=== PATIENT | female | born 1945 | race Caucasian/White ===

== ENCOUNTER 2021-04-11 13:17 | Inpatient (IN) ==
[2021-04-11 14:04] LABS: ABG Base Excess 6.7 MMOL/L (-2.5-2.5); ABG HCO3 30.5 MMOL/L (20-26); ABG Oxygen Saturation 99.5 % (95-100); ABG PH 7.277 (7.35-7.45); ABG TCO2 32.8 MMOL/L (23-27)
[2021-04-11 14:06] LABS: ABG PCO2 82.1 MM HG (35-48)
[2021-04-11 14:24] LABS: Albumin 3.2 G/DL (3.4-5.0); Bilirubin,Total 0.7 MG/DL (0.20-1.00); Calcium 8.8 MG/DL (8.5-10.1); Total Protein 6.9 G/DL (6.4-8.2)
[2021-04-11 14:30] LABS: Basophils # 0.1 10*3/uL (0.0-0.2); Basophils % 0.7 % (0.0-0.8); Eosinophils # 0.1 10*3/uL (0.0-0.87); Eosinophils % 0.7 % (0.00-10.9); Hematocrit 51.7 VOL% (35.7-47.0); Hemoglobin 15.3 GM/DL (12.0-16.0); Immature Granulocytes % 0.4 %; Immature Granulocytes Absolute 0.04 #; Lymphocytes # 1.7 10*3/uL (1.4-4.0); Lymphocytes % 16.3 % (21.3-54.2); Mean Corpuscular HGB Conc 29.6 GM/DL (32-36); Mean Corpuscular Volume 96.8 FL (87-102); Mean Platelet Volume 10.7 FL (9.6-12.0); Monocytes % 14.3 % (1.7-12.7); NRBC # 0.02 10*3/uL; Neutrophils % 67.6 % (38.7-73.9); Platelet Count 235 T/CUMM (130-400); Red Blood Count 5.34 MC/CUMM (3.8-5.5); Red Cell Distribution Width 14.2 % (9.3-17.3); White Blood Count 10.4 T/CUMM (4-12)
[2021-04-11 15:13] LABS: Eosinophils 2 % (0-10); Lymphocytes 17 % (20-55); Nucleated Red Blood Cells 2 (0-5); Polychromasia Few; Segmented Neutrophils 73 % (50-85); Target Cells Few; Total Cells Counted 100
[2021-04-11 15:14] LABS: Spherocytes Slight
[2021-04-11 15:15] LABS: Macrocytosis Slight; Platelet Estimate Normal
[2021-04-11 15:47] LABS: Bacteria,Urine Occasional /HPF (Few); Bilirubin,Urine Negative (Negative); Blood, Urine Negative (Negative); Glucose,Urine (UA) Negative (Negative); Hyaline Casts,Urine 3 /LPF (0-3); Ketones,Urine Negative (Negative); Mucus,Urine Occasional /LPF (Occasional); Nitrite,Urine Negative (Negative); Protein,Urine 30 MG/DL; RBC,Urine 3 /HPF (0-4); Squamous Epithelial Cell,Urine Occasional /HPF (0-10); Urine Appearance Slightly Hazy (Clear); Urine Color Yellow (Yellow); Urine Specific Gravity 1.023 (1.001-1.035); Urine Urobilinogen < 2.0 EU/DL (<2.0)
[2021-04-11] MEDS ORDERED: DEXTROSE 10% 25 GM/250 ML BAG IV PRN (15:56)
[2021-04-11] MEDS ORDERED: ONDANSETRON 4 MG/2 ML VIAL IV PRN (15:56)
[2021-04-11] MEDS ORDERED: ACETAMINOPHEN 325 MG TABLET PO PRN (15:56)
[2021-04-11] MEDS ORDERED: GLUCAGON 1 MG VIAL IM PRN (15:56)
[2021-04-11] MEDS ORDERED: FUROSEMIDE 40 MG/4 ML VIAL IV STA (16:15)
[2021-04-11] MEDS ORDERED: hydrALAZINE 20 MG/1 ML VIAL IV PRN (16:40)
[2021-04-11] MEDS: ENOXAPARIN 40 MG/0.4 ML SYRINGE SUBCUT SCH (17:05)
[2021-04-11] MEDS: cefTRIAXone 1,000 MG in SODIUM CHLORIDE 0.9% 100 ML IV SCH (17:09)
[2021-04-11 17:10] LABS: Risk Ratio 3.44; Thyroid Stimulating Hormone 2.06 uIU/ml (0.358-3.74); VLDL Cholesterol 20.6 MG/DL
[2021-04-11] MEDS: FUROSEMIDE 40 MG/4 ML VIAL IV SCH ×2 (17:13→19:01)
[2021-04-11] MEDS: AZITHROMYCIN INJ 500 MG in SODIUM CHLORIDE 0.9% 250 ML IV SCH (19:18)
[2021-04-12 04:26] LABS: ABG Base Excess 7.4 MMOL/L (-2.5-2.5); ABG HCO3 31.1 MMOL/L (20-26); ABG Oxygen Saturation 93.6 % (95-100); ABG PH 7.218 (7.35-7.45); ABG PO2 77.6 MM HG (80-95); ABG TCO2 36.3 MMOL/L (23-27); Allen Test Positive; Pt O2 Delivery Device BIPAP
[2021-04-12] MEDS ORDERED: SODIUM BICARBONATE 50 MEQ/50 ML VIAL IV STA (04:59)
[2021-04-12] MEDS ORDERED: SODIUM BICARBONATE 50 MEQ/50 ML VIAL IV ONE (05:01)
[2021-04-12 05:38] LABS: Calcium 8.5 MG/DL (8.5-10.1); Osmolality,Calculated 278.5 MOS/KG (273-304); Potassium 4.4 MMOL/L (3.5-5.1)
[2021-04-12 06:03] LABS: Basophils # 0.1 10*3/uL (0.0-0.2); Basophils % 0.6 % (0.0-0.8); Eosinophils # 0.1 10*3/uL (0.0-0.87); Eosinophils % 1.7 % (0.00-10.9); Hematocrit 49.6 VOL% (35.7-47.0); Immature Granulocytes % 0.4 %; Immature Granulocytes Absolute 0.03 #; Lymphocytes # 1.2 10*3/uL (1.4-4.0); Lymphocytes % 14.9 % (21.3-54.2); Mean Corpuscular HGB Conc 29.2 GM/DL (32-36); Mean Corpuscular Volume 98.2 FL (87-102); Mean Platelet Volume 10.7 FL (9.6-12.0); Monocytes % 13.8 % (1.7-12.7); Neutrophils % 68.6 % (38.7-73.9); Platelet Count 216 T/CUMM (130-400); Red Blood Count 5.05 MC/CUMM (3.8-5.5); Red Cell Distribution Width 14.3 % (9.3-17.3); White Blood Count 8.2 T/CUMM (4-12)
[2021-04-12 06:06] LABS: Hemoglobin 14.5 GM/DL (12.0-16.0)
[2021-04-12 06:23] LABS: ABG Base Excess 9.3 MMOL/L (-2.5-2.5); ABG HCO3 32.9 MMOL/L (20-26); ABG Oxygen Saturation 94.4 % (95-100); ABG PH 7.224 (7.35-7.45); ABG PO2 80.8 MM HG (80-95); ABG TCO2 38.2 MMOL/L (23-27)
[2021-04-12] MEDS: FUROSEMIDE 40 MG/4 ML VIAL IV SCH ×2 (08:51→16:57)
[2021-04-12] MEDS: LOSARTAN 50 MG TABLET PO SCH (08:51)
[2021-04-12 14:59] LABS: ABG Base Excess 10.3 MMOL/L (-2.5-2.5); ABG HCO3 34.1 MMOL/L (20-26); ABG Oxygen Saturation 98.5 % (95-100); ABG PH 7.262 (7.35-7.45); ABG TCO2 37.8 MMOL/L (23-27); Allen Test Positive; Pt O2 Delivery Device BIPAP
[2021-04-12 15:01] LABS: ABG PCO2 96.1 MM HG (35-48)
[2021-04-12] MEDS ORDERED: INFLUENZA VIRUS VACCINE 0.5 ML SYRINGE IM ONE (15:34)
[2021-04-12] MEDS: ENOXAPARIN 40 MG/0.4 ML SYRINGE SUBCUT SCH (16:57)
[2021-04-12] MEDS: metOLazone 5 MG TABLET PO SCH (17:51)
[2021-04-12] MEDS: AZITHROMYCIN INJ 500 MG in SODIUM CHLORIDE 0.9% 250 ML IV SCH (18:26)
[2021-04-12] MEDS: cefTRIAXone 1,000 MG in SODIUM CHLORIDE 0.9% 100 ML IV SCH (20:14)
[2021-04-13 04:13] LABS: Calcium 8.5 MG/DL (8.5-10.1)
[2021-04-13 04:32] LABS: Basophils % 0.5 % (0.0-0.8); Eosinophils # 0.3 10*3/uL (0.0-0.87); Hemoglobin 13.8 GM/DL (12.0-16.0); Immature Granulocytes % 0.4 %; Immature Granulocytes Absolute 0.03 #; Lymphocytes # 1.5 10*3/uL (1.4-4.0); Lymphocytes % 17.8 % (21.3-54.2); Mean Corpuscular HGB Conc 29.7 GM/DL (32-36); Mean Corpuscular Volume 96.5 FL (87-102); Mean Platelet Volume 10.7 FL (9.6-12.0); Neutrophils % 61.3 % (38.7-73.9); Platelet Count 207 T/CUMM (130-400); Red Blood Count 4.81 MC/CUMM (3.8-5.5); White Blood Count 8.2 T/CUMM (4-12)
[2021-04-13 04:34] LABS: Hematocrit 46.4 VOL% (35.7-47.0)
[2021-04-13 04:42] LABS: Atypical Lymphocytes Few; Eosinophils 5 % (0-10); Hypochromia 1+; Lymphocytes 22 % (20-55); Microcytosis 1+; Segmented Neutrophils 62 % (50-85); Stomatocytes Slight; Total Cells Counted 100
[2021-04-13 04:43] LABS: Platelet Estimate Normal
[2021-04-13 04:55] LABS: ABG Base Excess 14.7 MMOL/L (-2.5-2.5); ABG HCO3 38.6 MMOL/L (20-26); ABG Oxygen Saturation 97.2 % (95-100); ABG PH 7.328 (7.35-7.45); ABG PO2 99.4 MM HG (80-95); ABG TCO2 40.2 MMOL/L (23-27)
[2021-04-13 04:58] LABS: ABG PCO2 88.7 MM HG (35-48)
[2021-04-13 05:02] LABS: Osmolality,Calculated 278.5 MOS/KG (273-304); Potassium 3.7 MMOL/L (3.5-5.1)
[2021-04-13] MEDS: FUROSEMIDE 40 MG/4 ML VIAL IV SCH ×2 (08:09→15:32)
[2021-04-13] MEDS: LOSARTAN 50 MG TABLET PO SCH (08:10)
[2021-04-13] MEDS: metOLazone 5 MG TABLET PO SCH (08:10)
[2021-04-13] MEDS: ASPIRIN EC 325 MG TABLET PO SCH (13:18)
[2021-04-13] MEDS: ENOXAPARIN 40 MG/0.4 ML SYRINGE SUBCUT SCH (15:33)
[2021-04-13] MEDS: AZITHROMYCIN INJ 500 MG in SODIUM CHLORIDE 0.9% 250 ML IV SCH (18:09)
[2021-04-13] MEDS ORDERED: ATORVASTATIN 20 MG TABLET PO SCH (21:00)
[2021-04-13] MEDS: cefTRIAXone 1,000 MG in SODIUM CHLORIDE 0.9% 100 ML IV SCH (21:11)
[2021-04-14 04:37] LABS: ABG HCO3 47.9 MMOL/L (20-26); ABG Oxygen Saturation 98.8 % (95-100); ABG PH 7.423 (7.35-7.45); ABG PO2 131.2 MM HG (80-95); ABG TCO2 50.3 MMOL/L (23-27)
[2021-04-14 04:39] LABS: ABG PCO2 75.1 MM HG (35-48)
[2021-04-14 05:46] LABS: Calcium 8.4 MG/DL (8.5-10.1); Potassium 3.2 MMOL/L (3.5-5.1)
[2021-04-14 05:49] LABS: Basophils % 0.5 % (0.0-0.8); Eosinophils # 0.2 10*3/uL (0.0-0.87); Eosinophils % 2.1 % (0.00-10.9); Hematocrit 46.4 VOL% (35.7-47.0); Hemoglobin 14.3 GM/DL (12.0-16.0); Immature Granulocytes % 0.2 %; Immature Granulocytes Absolute 0.02 #; Lymphocytes # 1.2 10*3/uL (1.4-4.0); Lymphocytes % 15.3 % (21.3-54.2); Mean Corpuscular HGB Conc 30.8 GM/DL (32-36); Mean Corpuscular Volume 94.1 FL (87-102); Mean Platelet Volume 10.9 FL (9.6-12.0); Neutrophils % 67.9 % (38.7-73.9); Platelet Count 209 T/CUMM (130-400); Red Blood Count 4.93 MC/CUMM (3.8-5.5); Red Cell Distribution Width 13.8 % (9.3-17.3); White Blood Count 8.1 T/CUMM (4-12)
[2021-04-14] MEDS: LOSARTAN 50 MG TABLET PO SCH (08:14)
[2021-04-14] MEDS: metOLazone 5 MG TABLET PO SCH (08:14)
[2021-04-14] MEDS: FUROSEMIDE 40 MG/4 ML VIAL IV SCH (08:14)
[2021-04-14] MEDS: ASPIRIN EC 325 MG TABLET PO SCH (08:14)
[2021-04-14] MEDS ORDERED: FUROSEMIDE 40 MG TABLET PO SCH (09:00)
[2021-04-14 12:27] VITALS: BP 130/48
== END 2021-04-14 14:30 | disposition home health service (06) | DRG 280 ==
LOC: N.ED 13:17 → N.EDINP 15:59 → SUATTDRO 15:59 → N.CC 04-12 14:37 → N.TELES 04-13 16:20
PROVIDERS: ADMIT Internal Medicine; ATTEND Internal Medicine

== ENCOUNTER 2021-09-04 15:09 | Observation (INO) ==
[2021-09-04 15:56] LABS: Basophils # 0.1 10*3/uL (0.0-0.2); Basophils % 0.5 % (0.0-0.8); Eosinophils # 0.1 10*3/uL (0.0-0.87); Eosinophils % 0.6 % (0.00-10.9); Hematocrit 40.8 VOL% (35.7-47.0); Hemoglobin 13.8 GM/DL (12.0-16.0); Immature Granulocytes % 0.3 %; Immature Granulocytes Absolute 0.03 #; Lymphocytes # 2.3 10*3/uL (1.4-4.0); Lymphocytes % 23.3 % (21.3-54.2); Mean Corpuscular HGB Conc 33.8 GM/DL (32-36); Mean Corpuscular Volume 85.4 FL (87-102); Mean Platelet Volume 11.5 FL (9.6-12.0); Monocytes % 10.4 % (1.7-12.7); Neutrophils % 64.9 % (38.7-73.9); Platelet Count 192 T/CUMM (130-400); Red Blood Count 4.78 MC/CUMM (3.8-5.5); Red Cell Distribution Width 13.2 % (9.3-17.3); White Blood Count 9.9 T/CUMM (4-12)
[2021-09-04 16:26] LABS: Albumin 3.5 G/DL (3.4-5.0); Bilirubin,Total 0.7 MG/DL (0.20-1.00); Calcium 9.4 MG/DL (8.5-10.1); Osmolality,Calculated 252.6 MOS/KG (273-304); Potassium 3.6 MMOL/L (3.5-5.1); Total Protein 6.5 G/DL (6.4-8.2)
[2021-09-04] MEDS ORDERED: ALUM/MAG/SIMETH/LIDO VISC 1:1 30 ML BOTTLE PO STA (16:33)
[2021-09-04] MEDS ORDERED: hydrALAZINE 20 MG/1 ML VIAL IV PRN (17:09)
[2021-09-04] MEDS ORDERED: BISACODYL 5 MG TABLET PO PRN (17:09)
[2021-09-04] MEDS ORDERED: ALBUTEROL 2.5 MG/3 ML NEB RESP TX PRN (17:09)
[2021-09-04] MEDS ORDERED: LACTULOSE 20 GM/30 ML UDCUP PO PRN (17:09)
[2021-09-04] MEDS ORDERED: DOCUSATE SODIUM 100 MG CAPSULE PO PRN (17:09)
[2021-09-04] MEDS ORDERED: GLUCAGON 1 MG VIAL IM PRN (17:09)
[2021-09-04] MEDS ORDERED: ACETAMINOPHEN 325 MG TABLET PO PRN (17:09)
[2021-09-04] MEDS ORDERED: ALUMINUM/MAGNES/SIMETH MAX STR 30 ML UDCUP PO PRN (17:09)
[2021-09-04] MEDS ORDERED: ONDANSETRON 4 MG/2 ML VIAL IV PRN (17:09)
[2021-09-04] MEDS ORDERED: NITROGLYCERIN SL 0.4 MG TABLET SL PRN (17:17)
[2021-09-04] MEDS ORDERED: ALUM/MAG/SIMETH/LIDO VISC 1:1 30 ML BOTTLE PO PRN (17:17)
[2021-09-04] MEDS ORDERED: DEXTROSE 10% 250 ML BAG IV PRN (17:19)
[2021-09-04] MEDS: SODIUM CHLORIDE 0.9% 1,000 ML IV SCH (18:00)
[2021-09-04] MEDS: ENOXAPARIN 40 MG/0.4 ML SYRINGE SUBCUT SCH (18:11)
[2021-09-04] MEDS: ATORVASTATIN 20 MG TABLET PO SCH (21:30)
[2021-09-05 05:08] LABS: Basophils % 0.5 % (0.0-0.8); Eosinophils # 0.2 10*3/uL (0.0-0.87); Eosinophils % 2.1 % (0.00-10.9); Hematocrit 38.8 VOL% (35.7-47.0); Immature Granulocytes % 0.4 %; Immature Granulocytes Absolute 0.03 #; Lymphocytes # 2.1 10*3/uL (1.4-4.0); Lymphocytes % 27.3 % (21.3-54.2); Mean Corpuscular HGB Conc 33.5 GM/DL (32-36); Mean Platelet Volume 11.5 FL (9.6-12.0); Monocytes # 0.9 10*3/uL (0.11-0.8); Monocytes % 11.6 % (1.7-12.7); Neutrophils % 58.1 % (38.7-73.9); Platelet Count 166 T/CUMM (130-400); Red Blood Count 4.46 MC/CUMM (3.8-5.5); Red Cell Distribution Width 13.2 % (9.3-17.3); White Blood Count 7.7 T/CUMM (4-12)
[2021-09-05 05:33] LABS: Calcium 9.1 MG/DL (8.5-10.1); Osmolality,Calculated 259.8 MOS/KG (273-304); Potassium 3.4 MMOL/L (3.5-5.1); Risk Ratio 3.13; Thyroid Stimulating Hormone 1.78 uIU/ml (0.358-3.74); VLDL Cholesterol 15.6 MG/DL
[2021-09-05] MEDS ORDERED: POTASSIUM CHLORIDE 20 MEQ TABLET PO ONE (08:45)
[2021-09-05] MEDS: PANTOPRAZOLE 40 MG TABLET PO SCH (08:52)
[2021-09-05] MEDS: SODIUM CHLORIDE 0.9% 1,000 ML IV SCH (08:57)
[2021-09-05] MEDS ORDERED: LOSARTAN 50 MG TABLET PO SCH (09:00)
[2021-09-05] MEDS ORDERED: LOSARTAN 25 MG TABLET PO SCH (09:00)
[2021-09-05 10:38] LABS: Osmolality,Calculated 261.7 MOS/KG (273-304); Potassium 3.3 MMOL/L (3.5-5.1)
[2021-09-05] MEDS: ASPIRIN EC 81 MG TABLET PO SCH (17:29)
[2021-09-05] MEDS: ENOXAPARIN 40 MG/0.4 ML SYRINGE SUBCUT SCH (17:29)
[2021-09-05] MEDS: ATORVASTATIN 20 MG TABLET PO SCH (21:46)
[2021-09-06 03:58] LABS: Basophils # 0.1 10*3/uL (0.0-0.2); Basophils % 0.6 % (0.0-0.8); Eosinophils # 0.2 10*3/uL (0.0-0.87); Eosinophils % 2.6 % (0.00-10.9); Hematocrit 41.3 VOL% (35.7-47.0); Hemoglobin 13.6 GM/DL (12.0-16.0); Immature Granulocytes % 0.4 %; Immature Granulocytes Absolute 0.03 #; Lymphocytes # 1.9 10*3/uL (1.4-4.0); Lymphocytes % 24.4 % (21.3-54.2); Mean Corpuscular HGB Conc 32.9 GM/DL (32-36); Mean Platelet Volume 10.7 FL (9.6-12.0); Monocytes # 0.9 10*3/uL (0.11-0.8); Monocytes % 11.9 % (1.7-12.7); Neutrophils % 60.1 % (38.7-73.9); Platelet Count 175 T/CUMM (130-400); Red Blood Count 4.64 MC/CUMM (3.8-5.5); Red Cell Distribution Width 13.3 % (9.3-17.3); White Blood Count 7.8 T/CUMM (4-12)
[2021-09-06] MEDS: SODIUM CHLORIDE 0.9% 1,000 ML IV SCH (04:04)
[2021-09-06 04:15] LABS: Calcium 8.4 MG/DL (8.5-10.1); Osmolality,Calculated 270.1 MOS/KG (273-304); Potassium 3.7 MMOL/L (3.5-5.1)
[2021-09-06 08:27] VITALS: BP 142/67
[2021-09-06] MEDS ORDERED: LOSARTAN 50 MG TABLET PO SCH (09:00)
[2021-09-06] MEDS: ASPIRIN EC 81 MG TABLET PO SCH (09:35)
[2021-09-06] MEDS: PANTOPRAZOLE 40 MG TABLET PO SCH (09:35)
== END 2021-09-06 12:25 | disposition home or self-care (01) ==
LOC: EDUNIT# → EDBD → N.ED 15:09 → N.EDINP 15:09 → N.TELEN 18:46
PROVIDERS: ADMIT Internal Medicine; ATTEND Internal Medicine

== ENCOUNTER 2022-02-19 18:27 | Observation (INO) ==
[2022-02-19] MEDS ORDERED: PANTOPRAZOLE INJ 80 MG in SODIUM CHLORIDE 0.9% 100 ML IV ONE (18:43)
[2022-02-19 18:53] LABS: Basophils # 0.1 10*3/uL (0.0-0.2); Basophils % 0.8 % (0.0-0.8); Eosinophils # 0.1 10*3/uL (0.0-0.87); Eosinophils % 0.8 % (0.00-10.9); Hematocrit 43.5 VOL% (35.7-47.0); Hemoglobin 14.5 GM/DL (12.0-16.0); Immature Granulocytes % 0.4 %; Immature Granulocytes Absolute 0.04 #; Lymphocytes # 2.9 10*3/uL (1.4-4.0); Lymphocytes % 29.3 % (21.3-54.2); Mean Corpuscular HGB Conc 33.3 GM/DL (32-36); Mean Corpuscular Volume 90.4 FL (87-102); Mean Platelet Volume 9.9 FL (9.6-12.0); Monocytes # 1.2 10*3/uL (0.11-0.8); Monocytes % 11.8 % (1.7-12.7); Neutrophils % 56.9 % (38.7-73.9); Platelet Count 281 T/CUMM (130-400); Red Blood Count 4.81 MC/CUMM (3.8-5.5); Red Cell Distribution Width 12.8 % (9.3-17.3); White Blood Count 9.9 T/CUMM (4-12)
[2022-02-19 19:02] LABS: INR 0.9
[2022-02-19 19:14] LABS: Albumin 3.6 G/DL (3.4-5.0); Bilirubin,Total 0.5 MG/DL (0.20-1.00); Calcium 8.9 MG/DL (8.5-10.1); Osmolality,Calculated 260.9 MOS/KG (273-304); Potassium 3.8 MMOL/L (3.5-5.1); Total Protein 7.4 G/DL (6.4-8.2)
[2022-02-19] MEDS ORDERED: PANTOPRAZOLE 40 MG VIAL IV ONE (19:15)
[2022-02-19] MEDS ORDERED: PANTOPRAZOLE INJ 200 MG in SODIUM CHLORIDE 0.9% 250 ML IV SCH (19:30)
[2022-02-19] MEDS ORDERED: hydrALAZINE 20 MG/1 ML VIAL IV PRN (20:00)
[2022-02-19] MEDS ORDERED: SIMETHICONE CHEW 125 MG TABLET PO PRN (20:00)
[2022-02-19] MEDS ORDERED: ONDANSETRON 4 MG/2 ML VIAL IV PRN (20:00)
[2022-02-19] MEDS ORDERED: ACETAMINOPHEN 325 MG TABLET PO PRN (20:00)
[2022-02-19] MEDS: SODIUM CHLORIDE 0.9% 1,000 ML IV SCH (23:13)
[2022-02-20 01:15] LABS: Hematocrit 38.7 VOL% (35.7-47.0); Hemoglobin 13.2 GM/DL (12.0-16.0)
[2022-02-20 05:59] LABS: Basophils # 0.1 10*3/uL (0.0-0.2); Basophils % 0.8 % (0.0-0.8); Eosinophils # 0.1 10*3/uL (0.0-0.87); Eosinophils % 1.7 % (0.00-10.9); Hemoglobin 13.4 GM/DL (12.0-16.0); Immature Granulocytes % 0.4 %; Immature Granulocytes Absolute 0.03 #; Lymphocytes # 1.9 10*3/uL (1.4-4.0); Lymphocytes % 25.8 % (21.3-54.2); Mean Corpuscular HGB Conc 33.5 GM/DL (32-36); Mean Corpuscular Volume 90.1 FL (87-102); Mean Platelet Volume 10.2 FL (9.6-12.0); Monocytes # 0.9 10*3/uL (0.11-0.8); Monocytes % 11.5 % (1.7-12.7); Neutrophils % 59.8 % (38.7-73.9); Platelet Count 240 T/CUMM (130-400); Red Blood Count 4.44 MC/CUMM (3.8-5.5); Red Cell Distribution Width 12.7 % (9.3-17.3); White Blood Count 7.5 T/CUMM (4-12)
[2022-02-20 06:14] LABS: PT Patient Result 10.7 SECS (10.1-12.1)
[2022-02-20 06:23] LABS: Bilirubin,Total 0.6 MG/DL (0.20-1.00); Calcium 8.8 MG/DL (8.5-10.1); Osmolality,Calculated 262.5 MOS/KG (273-304); Potassium 3.5 MMOL/L (3.5-5.1); Thyroid Stimulating Hormone 0.85 uIU/ml (0.358-3.74); Total Protein 6.6 G/DL (6.4-8.2)
[2022-02-20 07:26] LABS: Hematocrit 40.6 VOL% (35.7-47.0); Hemoglobin 14.1 GM/DL (12.0-16.0)
[2022-02-20] MEDS ORDERED: POTASSIUM CHLORIDE 10 MEQ TABLET PO SCH (09:00)
[2022-02-20] MEDS ORDERED: LEVOTHYROXINE 175 MCG TABLET PO SCH (09:00)
[2022-02-20] MEDS ORDERED: metOLazone 2.5 MG TABLET PO SCH (09:00)
[2022-02-20] MEDS ORDERED: LOSARTAN 50 MG TABLET PO SCH (09:00)
[2022-02-20] MEDS ORDERED: ENALAPRIL 10 MG TABLET PO SCH (09:00)
[2022-02-20] MEDS ORDERED: PANTOPRAZOLE 40 MG VIAL IV SCH (09:00)
[2022-02-20] MEDS: OMEGA 3 ACID ETHYL ESTERS 1 GM CAPSULE PO SCH ×2 (09:33→09:47)
[2022-02-20] MEDS: SODIUM CHLORIDE 0.9% 1,000 ML IV SCH (09:33)
[2022-02-20 12:24] VITALS: BP 136/74
[2022-02-20] MEDS ORDERED: CALCIUM (CARBONATE)/VITAMIN D 600 MG-400 UNIT TABLET PO SCH (21:00)
[2022-02-20] MEDS ORDERED: OMEGA 3 ACID ETHYL ESTERS 1 GM CAPSULE PO SCH (21:00)
[2022-02-20] MEDS ORDERED: MONTELUKAST 10 MG TABLET PO SCH (21:00)
== END 2022-02-20 14:00 | disposition home or self-care (01) ==
LOC: N.EDINP 18:27 → N.ED 18:27 → SUATTDRO 20:00 → N.EDINP 22:35 → N.2E 22:44
PROVIDERS: ADMIT Family Medicine; ATTEND Internal Medicine